=== PATIENT | female | born 1935 | race Caucasian/White ===

== ENCOUNTER → 2017-12-11 | Outpatient (CLI) | payer MEDICARE, OTHER ==
[~2017-12-11] MED LIST: ALBIPROI INH; ALBU3IS; ALBU3IS INH; ALLO100 PO; AMLO5; ASPI81CH PO; ASPI81EC PO; AZIT250 PO; BCOIRO PO; CEREFOLIN; CEREFOLIN NAC PO; CEREFOLIN PO; CHOL10002 PO; CLAR500; CONESTTC PV; CRANBERRY CAP; CRANBERRY PO; Calcium Carbon500 MG PO; DOCU100 PO; DONE10 PO; DONE5 PO; DULO60 PO; ERGO400 PO; ERGO50000 PO; FENT25TP TOP; FENT50TP TOP; FENT75TP TOP; FISH1000 PO; FLUSAL1005 IH; FLUSAL2505; FLUSAL5005 IH; FLUSAL5005 INH; GUAI600T33; HYDACE10B; HYDACE5; I-CAPS; LAVAP17G PO; LEVFLO500 PO; LIDO5TP TOP; LIDO700A20 TOP; LINZESS145 MCG PO; LORA.5 PO; LORA10 PO; Levaquin500 MG PO; MECL25 PO; METH5; MIRT15 PO; MULVIT PO; MULVITMINF PO; OMEG1CAP30 PO; OMEP20ER PO; ONDA4ODT MM; OSEL75CA PO; OXYACE5T PO; OXYB5; OXYC15ER PO; OXYC5 PO; OXYGEN INH; PAPAYA; PAPAYA ENZYME PO; PRED20 PO; PROM25 PO; RXPROCODSY PO; SENN187 PO; SERT100; SERT50; STOMUL PO; TELM20 PO; TELM40 PO; TOLT2ER; TOLT2ER PO; TOLT4; TRAM50 PO; VITAMEN; VITB100 PO; VITNEPH PO; [UNRECOGNIZED DRUG - OTHER]; [UNRECOGNIZED DRUG - OTHER] PO; [UNRECOGNIZED DRUG - OTHER] PO; [UNRECOGNIZED DRUG - REMARK]; [UNRECOGNIZED DRUG - REMARK]
[2017-12-11 02:38] LABS: Source, Urine Catheter
[2017-12-11 02:45] LABS: Bilirubin, Urine Neg (Neg); Blood, Urine 1+ (Neg); Glucose Qualitative, Urine Neg (Neg); Ketones, Urine Neg (Neg); Leukocyte Esterase, Urine 3+ (Neg); Nitrite, Urine Neg (Neg); Protein, Urine 1+ (Neg); Specific Gravity, Urine 1.015 (1.003-1.022); Urobilinogen, Urine NORM (Normal)
[2017-12-11 02:48] LABS: Appearance, Urine Clear (Clear); Color, Urine Yellow (P-Yellow)
[2017-12-11 02:53] LABS: Amorphous Light (0-Heavy); Bacteria Few /hpf; Red Blood Cells, Urine Rare /hpf (0-2); Squamous Epithelial Cells Few /hpf (Few); White Blood Cells, Urine 50-100 /hpf (0-5)
== END | disposition home or self-care (01) ==
LOC: LAB RH 02:36
DX: N39.0 Urinary tract infection, site not specified (principal)
CPT/HCPCS: 81001; 87086

== ENCOUNTER → 2018-04-08 | Outpatient (CLI) | payer MEDICARE, OTHER ==
[~2018-04-08] MED LIST changes: -ALBU3IS; -CHOL10002 PO; -Calcium Carbon500 MG PO; -LIDO700A20 TOP; -LINZESS145 MCG PO
[2018-04-08 18:00] LABS: Bilirubin, Urine Neg (Neg); Blood, Urine 1+ (Neg); Glucose Qualitative, Urine Neg (Neg); Ketones, Urine Neg (Neg); Leukocyte Esterase, Urine 2+ (Neg); Nitrite, Urine Pos (Neg); Protein, Urine Neg (Neg); Specific Gravity, Urine 1.015 (1.003-1.022); Urobilinogen, Urine NORM (Normal); pH, Urine 6.5 (5.0-8.0)
[2018-04-08 18:14] LABS: Appearance, Urine Clear (Clear); Color, Urine Yellow (P-Yellow)
[2018-04-08 18:17] LABS: Bacteria Many /hpf; Red Blood Cells, Urine Not Seen /hpf (0-2); Squamous Epithelial Cells Mod /hpf (Few)
== END | disposition home or self-care (01) ==
LOC: EDSTATUS 16:03 → LAB RH 16:45
DX: N39.0 Urinary tract infection, site not specified (principal)
CPT/HCPCS: 81001; 87077; 87086; 87186

== ENCOUNTER 2018-05-27 16:16 | Emergency (ER) | payer MEDICARE, OTHER ==
[~2018-05-27] VITALS: Ht 162.6 cm; Wt 56.7 kg
[~2018-05-27 16:16] MED LIST changes: +CHOL10002 PO
[2018-05-27] MEDS ORDERED: LINZESS145 MCG PO (16:31)
[2018-05-27] MEDS ORDERED: ALBU3IS (16:32)
[2018-05-27] MEDS ORDERED: Calcium Carbon500 MG PO (16:35)
[2018-05-27] MEDS ORDERED: FENT50TP TOP (16:36)
[2018-05-27] MEDS ORDERED: LIDO700A20 TOP (16:53)
== END 2018-05-27 18:27 | disposition home or self-care (01) ==
LOC: ER 16:16
DX: M25.511 Pain in right shoulder (principal); F03.90 Unspecified dementia, unspecified severity, without behavioral disturbance, psychotic disturbance, mood disturbance, and anxiety; I10 Essential (primary) hypertension; F32.9 Major depressive disorder, single episode, unspecified; Z88.0 Allergy status to penicillin; Z88.5 Allergy status to narcotic agent; Z91.09 Other allergy status, other than to drugs and biological substances; Z91.018 Allergy to other foods; Z79.899 Other long term (current) drug therapy; Z79.82 Long term (current) use of aspirin; Z79.51 Long term (current) use of inhaled steroids; Z87.891 Personal history of nicotine dependence
CPT/HCPCS: 73030; 99283

== ENCOUNTER → 2018-07-03 | Outpatient (CLI) | payer MEDICARE, OTHER ==
[~2018-07-03] MED LIST changes: +ALBU3IS; +Calcium Carbon500 MG PO; +LIDO700A20 TOP; +LINZESS145 MCG PO
[2018-07-03 22:42] LABS: Bilirubin, Urine Neg (Neg); Blood, Urine Neg (Neg); Glucose Qualitative, Urine Neg (Neg); Ketones, Urine Neg (Neg); Leukocyte Esterase, Urine 1+ (Neg); Nitrite, Urine Neg (Neg); Protein, Urine 2+ (Neg); Urobilinogen, Urine NORM (Normal); pH, Urine 6.5 (5.0-8.0)
[2018-07-03 22:50] LABS: Appearance, Urine Clear (Clear); Color, Urine Yellow (P-Yellow)
[2018-07-03 22:51] LABS: Bacteria Many /hpf; Mucus Heavy (0-Heavy); Squamous Epithelial Cells Few /hpf (Few)
== END | disposition home or self-care (01) ==
LOC: EDSTATUS 14:56 → LAB RH 22:36
DX: N39.0 Urinary tract infection, site not specified (principal)
CPT/HCPCS: 81001; 87086

== ENCOUNTER → 2018-12-12 | Outpatient (CLI) | payer MEDICARE, OTHER ==
[2018-12-13 02:53] LABS: Bilirubin, Urine Neg (Neg); Blood, Urine 2+ (Neg); Glucose Qualitative, Urine Neg (Neg); Ketones, Urine 1+ (Neg); Leukocyte Esterase, Urine 3+ (Neg); Nitrite, Urine Neg (Neg); Protein, Urine 2+ (Neg); Urobilinogen, Urine NORM (Normal)
[2018-12-13 03:21] LABS: Appearance, Urine Cloudy (Clear); Color, Urine Yellow (P-Yellow)
[2018-12-13 03:25] LABS: Bacteria Many /hpf; Red Blood Cells, Urine 0-2 /hpf (0-2); Squamous Epithelial Cells Few /hpf (Few); White Blood Cells, Urine 50-100 /hpf (0-5)
== END | disposition home or self-care (01) ==
LOC: EDSTATUS 10:39 → LAB RH 22:00
DX: N39.46 Mixed incontinence (principal)
CPT/HCPCS: 81001; 87086

== ENCOUNTER → 2019-01-01 | Outpatient (CLI) | payer MEDICARE, OTHER ==
[2019-01-01 14:09] LABS: Source, Urine Catheter
[2019-01-01 14:44] LABS: Appearance, Urine Hazy (Clear); Bilirubin, Urine Neg (Neg); Blood, Urine 1+ (Neg); Color, Urine Yellow (P-Yellow); Glucose Qualitative, Urine Neg (Neg); Ketones, Urine 1+ (Neg); Leukocyte Esterase, Urine 1+ (Neg); Nitrite, Urine Neg (Neg); Protein, Urine 1+ (Neg); Specific Gravity, Urine 1.025 (1.003-1.022); Urobilinogen, Urine 1+ (Normal)
[2019-01-01 15:02] LABS: Bacteria Few /hpf; Squamous Epithelial Cells Many /hpf (Few)
== END | disposition home or self-care (01) ==
LOC: EDSTATUS 11:24 → LAB RH 14:08
DX: N39.0 Urinary tract infection, site not specified (principal)
CPT/HCPCS: 81001; 87086

== ENCOUNTER → 2020-02-10 | Outpatient (CLI) | payer MEDICARE, OTHER ==
[~2020-02-10] MED LIST changes: +ACET325 PO; +ALBU90OI INH; +ASPIR 8181 MG PO; +Artificial Tea1 EACH BOTHEYES; +BISA10S PR; +BISA5EC PO; +Ceftriaxone1 G2 IV; +DONEPEZIL HCL10 MG PO; +FLUT1DIS8 INH; +Fleet Enema132 ML PR; +GAVILAX17 GM PO; +GUAI600T33 PO; +LEVO750 PO; +MAGNESIUM CITR100 MG; +MILK OF MA400 MG/5 M PO; +PROM25S PR; +THERA1 EACH PO; +Transderm-Scop1 EACH TD; +Vitamin D2000 UNIT PO; +[UNRECOGNIZED DRUG - OTHER] IV
[2020-02-10 12:10] LABS: Hematocrit 43.5 % (33.0-51.0); Hemoglobin 13.3 g/dL (11.5-16.0); Mean Corpuscular HGB 29.8 pg (26.0-34.0); Mean Corpuscular HGB Conc 30.6 g/dL (31.5-36.5); Mean Corpuscular Volume 97 fL (80-100); Mean Platelet Volume 12.5 fL (9.1-12.4); NRBC ABSOLUTE 0.02 K/mm3 (0.00-0.02); NRBC Auto 0.1 /100 WBC (0.0-0.2); Platelet Count 266 K/mm3 (150-400); RDW Coefficient Variation 15.3 % (11.7-14.2); RDW Standard Deviation 55.2 fL (35.1-46.3); Red Blood Cell Count 4.47 M/mm3 (3.80-5.20); White Blood Cell Count 24.95 K/mm3 (4.00-11.30)
[2020-02-10 12:25] LABS: Albumin, Blood 2.7 g/dL (3.4-5.0); Albumin/Globulin Ratio 0.6 (0.8-1.8); Bilirubin, Total 0.9 mg/dL (0.1-1.0); Bun/Creatinine Ratio 44.4 (12.0-20.0); Calcium, Blood 9.4 mg/dL (8.5-10.1); Creatinine, Blood 1.26 mg/dL (0.40-1.00); Globulin, Blood 4.4 g/dL (2.2-4.0); Potassium, Blood 3.9 mmol/L (3.5-5.5); Total Protein, Blood 7.1 g/dL (6.4-8.2)
[2020-02-10 12:44] LABS: Appearance, Urine Hazy (Clear); Bilirubin, Urine Neg (Neg); Blood, Urine 1+ (Neg); Color, Urine Yellow (P-Yellow); Glucose Qualitative, Urine Neg (Neg); Ketones, Urine 1+ (Neg); Leukocyte Esterase, Urine 3+ (Neg); Nitrite, Urine Neg (Neg); Protein, Urine 3+ (Neg); Specific Gravity, Urine 1.015 (1.003-1.022); Urobilinogen, Urine 1+ (Normal)
[2020-02-10 13:02] LABS: Bacteria Many /hpf; Red Blood Cells, Urine 0-2 /hpf (0-2); Squamous Epithelial Cells Few /hpf (Few)
== END | disposition home or self-care (01) ==
LOC: EDSTATUS 11:06 → LAB RH 11:07
PROVIDERS: Family Medicine
DX: G20 Parkinson's disease (principal); J44.1 Chronic obstructive pulmonary disease with (acute) exacerbation; E56.9 Vitamin deficiency, unspecified; E56.8 Deficiency of other vitamins; N39.0 Urinary tract infection, site not specified
CPT/HCPCS: 80053; 81001; 85027; 87077; 87086; 87186

== ENCOUNTER 2020-02-12 19:01 | Inpatient (IN) | payer MEDICARE, OTHER ==
[~2020-02-12] VITALS: Ht 165.1 cm; Wt 57.8 kg
[~2020-02-12 19:01] MED LIST changes: -ACET325 PO; -ALBU90OI INH; -ASPIR 8181 MG PO; -Artificial Tea1 EACH BOTHEYES; -BISA10S PR; -BISA5EC PO; -Ceftriaxone1 G2 IV; -DONEPEZIL HCL10 MG PO; -FLUT1DIS8 INH; -Fleet Enema132 ML PR; -GAVILAX17 GM PO; -GUAI600T33 PO; -MAGNESIUM CITR100 MG; -MILK OF MA400 MG/5 M PO; -PROM25S PR; -THERA1 EACH PO; -Transderm-Scop1 EACH TD; -Vitamin D2000 UNIT PO; -[UNRECOGNIZED DRUG - OTHER] IV
[2020-02-12] MEDS ORDERED: DONEPEZIL HCL10 MG PO (19:20)
[2020-02-12] MEDS ORDERED: ALLO100 PO (19:20)
[2020-02-12] MEDS ORDERED: FLUT1DIS8 INH (19:20)
[2020-02-12] MEDS ORDERED: BISA5EC PO (19:21)
[2020-02-12] MEDS ORDERED: ASPIR 8181 MG PO (19:21)
[2020-02-12] MEDS ORDERED: Ceftriaxone1 G2 IV (19:21)
[2020-02-12] MEDS ORDERED: THERA1 EACH PO (19:22)
[2020-02-12] MEDS ORDERED: [UNRECOGNIZED DRUG - OTHER] IV (19:23)
[2020-02-12] MEDS ORDERED: DOCU100 PO (19:24)
[2020-02-12 19:25] LABS: PCO2 Arterial 53.8 mmHg (35-45); PO2 Arterial 77.4 mmHg (80-100); pH Blood Arterial 7.29 (7.35-7.45)
[2020-02-12] MEDS ORDERED: DULO60 PO (19:25)
[2020-02-12] MEDS ORDERED: FENT50TP TOP (19:25)
[2020-02-12] MEDS ORDERED: BISA10S PR (19:25)
[2020-02-12] MEDS ORDERED: GUAI600T33 PO (19:26)
[2020-02-12] MEDS ORDERED: Artificial Tea1 EACH BOTHEYES (19:27)
[2020-02-12 19:28] LABS: BASOPHILS ABSOLUTE AUTO 0.15 K/mm3 (0.00-0.23); BASOPHILS PERCENT AUTO 1 % (0-2); EOSINOPHILS PERCENT AUTO 0 % (0-6); Hematocrit 42.8 % (33.0-51.0); Hemoglobin 12.9 g/dL (11.5-16.0); IMMATURE GRAN ABSOLUTE AUTO 0.62 K/mm3 (0.00-0.10); IMMATURE GRAN PERCENT AUTO 3 % (0-1); LYMPHOCYTES ABSOLUTE AUTO 1.11 K/mm3 (0.84-5.20); LYMPHOCYTES PERCENT AUTO 5 % (21-46); MONOCYTES PERCENT AUTO 5 % (4-13); Mean Corpuscular HGB 30.2 pg (26.0-34.0); Mean Corpuscular HGB Conc 30.1 g/dL (31.5-36.5); Mean Corpuscular Volume 100 fL (80-100); Mean Platelet Volume 12.4 fL (9.1-12.4); NEUTROPHILS PERCENT AUTO 87 % (41-73); NRBC ABSOLUTE 0.05 K/mm3 (0.00-0.02); NRBC Auto 0.2 /100 WBC (0.0-0.2); Platelet Count 292 K/mm3 (150-400); RDW Coefficient Variation 15.7 % (11.7-14.2); Red Blood Cell Count 4.27 M/mm3 (3.80-5.20); White Blood Cell Count 22.68 K/mm3 (4.00-11.30)
[2020-02-12] MEDS ORDERED: MILK OF MA400 MG/5 M PO (19:28)
[2020-02-12] MEDS ORDERED: TELM40 PO (19:28)
[2020-02-12] MEDS ORDERED: GAVILAX17 GM PO (19:28)
[2020-02-12] MEDS ORDERED: Vitamin D2000 UNIT PO (19:29)
[2020-02-12] MEDS ORDERED: SENN187 PO (19:29)
[2020-02-12] MEDS ORDERED: ACET325 PO (19:29)
[2020-02-12 19:39] LABS: Albumin, Blood 2.2 g/dL (3.4-5.0); Albumin/Globulin Ratio 0.6 (0.8-1.8); Bilirubin, Total 0.3 mg/dL (0.1-1.0); Bun/Creatinine Ratio 37.3 (12.0-20.0); Calcium, Blood 9.4 mg/dL (8.5-10.1); Creatinine, Blood 1.34 mg/dL (0.40-1.00); Potassium, Blood 3.9 mmol/L (3.5-5.5); Total Protein, Blood 6.2 g/dL (6.4-8.2)
[2020-02-12 20:01] LABS: Source, Urine Clean Catch
[2020-02-12 20:05] LABS: Appearance, Urine Hazy (Clear); Bilirubin, Urine Neg (Neg); Blood, Urine Neg (Neg); Color, Urine Yellow (P-Yellow); Glucose Qualitative, Urine Neg (Neg); Ketones, Urine 1+ (Neg); Leukocyte Esterase, Urine 1+ (Neg); Nitrite, Urine Neg (Neg); Protein, Urine 3+ (Neg); Urobilinogen, Urine NORM (Normal)
[2020-02-12 20:14] LABS: Bacteria Mod /hpf; Red Blood Cells, Urine Not Seen /hpf (0-2); Squamous Epithelial Cells Few /hpf (Few)
[2020-02-12 20:15] LABS: Amorphous Light (0-Heavy)
--- NOTE | 2020-02-13 01:15 | NUR ---
PT RECEIVED FROM ER VIA STRETCHER, TRANSFERRED TO BED WITHOUT INCIDENT. PT IS CONFUSED, UNABLE TO ANSWER ADMISSION QUESTIONS.
--- NOTE | 2020-02-13 02:17 | NUR ---
UPDATE VERIFIED WITH DR COOK THAT THE LANTUS AND D5 ARE TO BE GIVEN. DR COOK STATED TO GO AHEAD AND ADMINISTER BOTH MEDICATIONS.
[2020-02-13 04:21] LABS: Hematocrit 39.4 % (33.0-51.0); Hemoglobin 11.9 g/dL (11.5-16.0); Mean Corpuscular HGB 29.7 pg (26.0-34.0); Mean Corpuscular HGB Conc 30.2 g/dL (31.5-36.5); Mean Corpuscular Volume 98 fL (80-100); Mean Platelet Volume 12.5 fL (9.1-12.4); NRBC ABSOLUTE 0.03 K/mm3 (0.00-0.02); NRBC Auto 0.1 /100 WBC (0.0-0.2); Platelet Count 254 K/mm3 (150-400); RDW Coefficient Variation 15.5 % (11.7-14.2); RDW Standard Deviation 56.9 fL (35.1-46.3); Red Blood Cell Count 4.01 M/mm3 (3.80-5.20); White Blood Cell Count 24.55 K/mm3 (4.00-11.30)
[2020-02-13 04:54] LABS: Albumin/Globulin Ratio 0.6 (0.8-1.8); Bilirubin, Total 0.3 mg/dL (0.1-1.0); Bun/Creatinine Ratio 34.5 (12.0-20.0); Calcium, Blood 9.3 mg/dL (8.5-10.1); Creatinine, Blood 1.65 mg/dL (0.40-1.00); Globulin, Blood 3.6 g/dL (2.2-4.0); Total Protein, Blood 5.6 g/dL (6.4-8.2)
--- NOTE | 2020-02-13 06:30 | NUR ---
VSS, PT IS SENSITIVE TO TOUCH. CONFUSED, PLEASANT. PT LUNG SOUNDS ARE COARSE THROUGHOUT, STABLE OXYGEN SATURATION ON 8L VIA OXYMIZER. NO C/O N/V. SKIN INTACT. PT IS VERY WEAK, COULD NOT STAND WITH 2 PERSON ASSIST TO BSC. PT IS INCONTINENT OF URINE. PT UNABLE TO ANSWER ADMISSION QUESTIONS. IV INFUSING WELL, NO REDNESS, SWELLING OR TENDERNESS NOTED. BED IN LOW POSITION, CALL CASTANEDA WITH REACH, BED ALARM ON.
[2020-02-13] MEDS ORDERED: Fleet Enema132 ML PR (06:40)
[2020-02-13] MEDS ORDERED: MAGNESIUM CITR100 MG (06:42)
[2020-02-13] MEDS ORDERED: ALBU90OI INH (06:42)
[2020-02-13 07:08] LABS: PCO2 Arterial 44.9 mmHg (35-45); PO2 Arterial 56.5 mmHg (80-100); pH Blood Arterial 7.35 (7.35-7.45)
--- NOTE | 2020-02-13 07:32 | NUR ---
ASSUMED CARE: PT RESTING QUIETLY AT THIS TIME. RT AND TRAINING TECHNICIAN AT BEDSIDE UPON ASSUMPTION OF CARE. NO ACUTE NEEDS OR CONCERNS.
--- NOTE | 2020-02-13 10:32 | NUR ---
DR GUTIÉRREZ CAME TO SEE PT. STATED PT COULD EAT WITH SUPERVISION AFTER REVIEWING RECORDS FROM [facility]. ADMINISTERED MEDS WITH APPLE SAUCE AND SIPS OF WATER WHICH PT TOLERATED WELL WITH NO DIFFICULTY SWALLOWING.
--- NOTE | 2020-02-13 14:06 | NUR ---
DR CAMPBELL MADE AWARE OF FAILED SWALLOW EVAL. ORDERS FOR CONTINUOUS FLUIDS UNTIL SPEECH CAN REEVAL TOMORROW.
--- NOTE | 2020-02-13 17:54 | NUR ---
SHIFT SUMMARY: PT RESTING QUIETLY IN BED. REMAINS VERY CONFUSED AND [place] BUT PLEASANT. 8L O2 VIA NC WITH SAT IN LOW 90S. UPDATED SON THIS AM. FAILED SPEECH EVAL. SPEECH TO REEVAL TOMORROW. NO FURTHER NEEDS OR CONCERNS AT THIS TIME.
--- NOTE | 2020-02-14 07:25 | NUR ---
SHIFT SUMMARY PATIENT CONFUSED AND FORGETFUL THROUGHOUT THE NIGHT. PATIENT VERY DIFFICULT TO REORIENT. PATIENT CHANGES IDEAS AND THOUGHOUTS SEVERAL TIMES DURING A SENTENCE. PATIENT APPEARED TO SLEEP WELL THROUGHOUT MOST OF THE NIGHT, HOWEVER, AT APPROX 0400 PATIENT BEGAN TO BECOME VERY AGITATED AND UNSETTLED. PATIENT STATED TO STAFF THAT SHE HURT, "ALL OVER." DR COOK NOTIFIED OF PATIENT'S HOME PAIN MEDICATIONS. ORDERS RECEIVED. PATIENT THEN APPEARED TO NAP ON AND OFF THROUGHOUT THE REST OF THE NIGHT. WHILE PATIENT WAS AGITATED SHE REMOVED HER OXYGEN SEVERAL TIMES, REPLACED EACH TIME. PATIENT CHECKED ON FREQUENTLY DURING HER AGITATION THIS MORNING. PATIENT APPEARS TO BE ABLE TO TURN SELF IN BED ON HER OWN. REPORT GIVEN TO ONCOMING RN.
[2020-02-14 08:44] LABS: BASOPHILS ABSOLUTE AUTO 0.05 K/mm3 (0.00-0.23); BASOPHILS PERCENT AUTO 0 % (0-2); EOSINOPHILS PERCENT AUTO 0 % (0-6); Hematocrit 37.4 % (33.0-51.0); Hemoglobin 11.6 g/dL (11.5-16.0); IMMATURE GRAN PERCENT AUTO 2 % (0-1); LYMPHOCYTES ABSOLUTE AUTO 1.13 K/mm3 (0.84-5.20); LYMPHOCYTES PERCENT AUTO 4 % (21-46); MONOCYTES ABSOLUTE AUTO 0.36 K/mm3 (0.16-1.47); MONOCYTES PERCENT AUTO 1 % (4-13); Mean Corpuscular HGB 29.4 pg (26.0-34.0); Mean Platelet Volume 12.1 fL (9.1-12.4); NEUTROPHILS ABSOLUTE AUTO 24.11 K/mm3 (1.96-9.15); NEUTROPHILS PERCENT AUTO 92 % (41-73); NRBC ABSOLUTE 0.04 K/mm3 (0.00-0.02); NRBC Auto 0.2 /100 WBC (0.0-0.2); Platelet Count 302 K/mm3 (150-400); RDW Coefficient Variation 15.5 % (11.7-14.2); RDW Standard Deviation 53.2 fL (35.1-46.3); Red Blood Cell Count 3.95 M/mm3 (3.80-5.20); White Blood Cell Count 26.25 K/mm3 (4.00-11.30)
[2020-02-14 08:49] LABS: Mean Corpuscular Volume 95 fL (80-100)
[2020-02-14 09:00] LABS: Bun/Creatinine Ratio 44.8 (12.0-20.0); Calcium, Blood 9.4 mg/dL (8.5-10.1); Creatinine, Blood 1.43 mg/dL (0.40-1.00); Magnesium, Blood 2.5 mg/dL (1.6-2.4); Potassium, Blood 4.1 mmol/L (3.5-5.5)
--- NOTE | 2020-02-14 09:54 | NUR ---
NOTE PT SON CALLED TO CHECK ON MOM. TALKED FOR AWHILE. HE RELATES THAT CIPRO WORKS BETTER ON MOM THAN LEVAGUIN. PT CURRENTLY NPO PER SPEACH THERAPY DIRECTION. UNABLE TO GIVEN ORAL MEDICATIONS AT THIS TIME. DR CAMPBELL INFORMED. VSS. FENTANYL PATCH ON RIGHT FRONT CHEST. CONTINUE POT.
--- NOTE | 2020-02-14 10:41 | NUR ---
NOTE DR CAMPBELL ROUNDED ON PT. NO NEW ORDERS. CONTINUE POT.
--- NOTE | 2020-02-14 14:14 | NUR ---
NOTE PT RESTING WITH EYES CLOSED. ST. LOW 100'S. VSS. PT LIKES TO LAY ON HER LEFT SIDE. SHE PREFERS TO NOT HAVE PILLOWS BEHIND HER. NPO D/T ASPIRATION CONCERNS. ORAL CARE DONE WITH SET UP BY PT. 8L OXIMYZER. SAT STABLE AT THIS TIME. NO COUGH. CONTINUE POT.
[2020-02-15 05:46] LABS: BASOPHILS ABSOLUTE AUTO 0.04 K/mm3 (0.00-0.23); BASOPHILS PERCENT AUTO 0 % (0-2); EOSINOPHILS PERCENT AUTO 0 % (0-6); Hematocrit 35.7 % (33.0-51.0); Hemoglobin 11.1 g/dL (11.5-16.0); IMMATURE GRAN ABSOLUTE AUTO 0.56 K/mm3 (0.00-0.10); IMMATURE GRAN PERCENT AUTO 2 % (0-1); LYMPHOCYTES ABSOLUTE AUTO 0.99 K/mm3 (0.84-5.20); LYMPHOCYTES PERCENT AUTO 4 % (21-46); MONOCYTES ABSOLUTE AUTO 0.37 K/mm3 (0.16-1.47); MONOCYTES PERCENT AUTO 1 % (4-13); Mean Corpuscular HGB 28.8 pg (26.0-34.0); Mean Corpuscular HGB Conc 31.1 g/dL (31.5-36.5); Mean Corpuscular Volume 93 fL (80-100); Mean Platelet Volume 12.1 fL (9.1-12.4); NEUTROPHILS ABSOLUTE AUTO 24.19 K/mm3 (1.96-9.15); NEUTROPHILS PERCENT AUTO 93 % (41-73); NRBC ABSOLUTE 0.04 K/mm3 (0.00-0.02); NRBC Auto 0.2 /100 WBC (0.0-0.2); Platelet Count 311 K/mm3 (150-400); RDW Coefficient Variation 15.2 % (11.7-14.2); RDW Standard Deviation 52.3 fL (35.1-46.3); Red Blood Cell Count 3.85 M/mm3 (3.80-5.20); White Blood Cell Count 26.15 K/mm3 (4.00-11.30)
[2020-02-15 05:53] LABS: Calcium, Blood 9.1 mg/dL (8.5-10.1); Creatinine, Blood 1.22 mg/dL (0.40-1.00); Magnesium, Blood 2.5 mg/dL (1.6-2.4); Potassium, Blood 3.8 mmol/L (3.5-5.5)
--- NOTE | 2020-02-15 06:28 | NUR ---
SHIFT SUMMARY PATIENT PLEASENT BUT CONTINUES TO BE CONFUSED. PATIENT'S CONTINUES TO BE DIFFICULT TO HOLD A CONVERASTION WITH PATIENT'S THOUGHTS CHANGE IN THE MIDDLE OF HER SENTENCES. PATIENT CONTINUES TO BE DIFFICULT TO REORIENT. PATIENT APPEARS TO MOVE HERSELF ABOUT IN BED. IV FLUIDS CONTINUE TO RUN PER ORDERS. WILL CONTINUE TO MONITOR PATIENT AND REPORT TO ONCOMING RN.
--- NOTE | 2020-02-15 12:54 | NUR ---
I can her patient yelling "help me, help me" from the hallway quite a distance from her room. I walk into patient's room and introduce myself and the department I represent. Patient struggles to hear (which account for her yellig?) and so conversation is somewhat strained. I asked patient what she needs help with and she states that she doesn't know. Patient attempts to get out of bed and I ask patient where she is going and she tells me that she doesn't know but she "can't keep lying here." Patient tells me that she is very sick and I remind her that lying still and resting is part of what will help her feel better. Patient did not understand my questions about God or adventism but when I asked her if I could say a prayer for her she says, "well of course!" I gladly provide prayer. I also listen empathically, normalize patient's experience and provide companionship (which gives staff a few minutes without having to listen to patient's yelling). Patient responds well to the prayer and says that she feels better because of the prayer. I will continue to remain available to patient and family.
--- NOTE | 2020-02-15 18:35 | NUR ---
NOTE PT ALERT AND CONFUSED. YELLS OUT FREQUENTLY BUT DOESN'T KNOW WHAT SHE WANTS HELP WITH. NIKOLSKI. TALKED WITH PT SON RANDY. THEY DO NOT WANT HER TO HAVE ARTIFICIAL NUTRITION APARTMENT COORDINATOR. CLINIMAX IS FINE FOR THE SHORT TERM. NO FEEDING TUBES. PT OUT OF COVID ISOLATION. DOORS OPEN. CONTINUE POT.
[2020-02-16 04:31] LABS: BASOPHILS ABSOLUTE AUTO 0.04 K/mm3 (0.00-0.23); BASOPHILS PERCENT AUTO 0 % (0-2); EOSINOPHILS PERCENT AUTO 0 % (0-6); Hemoglobin 11.7 g/dL (11.5-16.0); IMMATURE GRAN PERCENT AUTO 1 % (0-1); LYMPHOCYTES ABSOLUTE AUTO 0.57 K/mm3 (0.84-5.20); LYMPHOCYTES PERCENT AUTO 3 % (21-46); MONOCYTES ABSOLUTE AUTO 0.37 K/mm3 (0.16-1.47); MONOCYTES PERCENT AUTO 2 % (4-13); Mean Corpuscular HGB 29.8 pg (26.0-34.0); Mean Corpuscular HGB Conc 32.5 g/dL (31.5-36.5); Mean Corpuscular Volume 92 fL (80-100); Mean Platelet Volume 11.3 fL (9.1-12.4); NEUTROPHILS PERCENT AUTO 94 % (41-73); NRBC ABSOLUTE 0.02 K/mm3 (0.00-0.02); NRBC Auto 0.1 /100 WBC (0.0-0.2); Platelet Count 304 K/mm3 (150-400); RDW Standard Deviation 50.8 fL (35.1-46.3); Red Blood Cell Count 3.93 M/mm3 (3.80-5.20); White Blood Cell Count 21.38 K/mm3 (4.00-11.30)
[2020-02-16 04:47] LABS: Bun/Creatinine Ratio 53.4 (12.0-20.0); Calcium, Blood 8.9 mg/dL (8.5-10.1); Creatinine, Blood 0.99 mg/dL (0.40-1.00); Magnesium, Blood 2.4 mg/dL (1.6-2.4); Phosphorus, Blood 3.4 mg/dL (2.5-4.9); Potassium, Blood 3.7 mmol/L (3.5-5.5)
--- NOTE | 2020-02-16 05:34 | NUR ---
SHIFT SUMMARY: PATIENT HAD SEVERAL EPISODES DURING THE SHIFT OF O2 SATURATION DROPPING INTO THE HIGH 70'S AND LOW 80'S WITH INCREASED BP AND ANXIOUS BEHAVIOR. AT APPROX 0320 PATIENT HAD ANOTHER EPISODE WITH 02 DROPPING TO 72% ON 10L OXIMIZER, O2 TURNED UP TO 15L WITH NO IMPROVEMENT, RT CALLED, MD COOK NOTIIED WITH ORDERS RECIEVED. PATIENT PLACED ON AIRVO AT 85% FI02 AND PATIENTS 02 SATURATION REACHED 93% AND REMAINED. PATIENTS BLOOD PRESSURES IMPROVED AND PATIENT ABLE TO FALL ASLEEP. NO OTHER ISSUES NOTED. CALL LIGHT WITHIN REACH, LIGHTS DIMMED, MUSIC STATION ON AND PLAYING SOFT MUSIC, PATIENT MOVED TO ROOM PCU 11 FOR CLOSER OBSERVATION.
--- NOTE | 2020-02-16 05:47 | NUR ---
WRIST RESTRAINTS PLACED AT APPROX 0355 PATIENT WOULD NOT LEAVE O2 ON FACE AND WAS PULLING AT MIDLINE AND HEART MONITOR, PATIENT IS CONFUSED AND RESTLESS, MONITORING CLOSELY AND MD AWARE WITH ORDER RECIEVED.
--- NOTE | 2020-02-16 18:14 | NUR ---
PCU DAYSHIFT SUMMARY PATIENT ALERT AND ORIENTED TO SELF AND LOCATION. CONFUSED TO SITUATION AND TIME/DATE. PATIENT DENIES ANY PAIN T/O SHIFT. RESP E/U AT REST ON AIRVO. PATIENT IN NSR WITH HR IN THE 90'S. RESTRAINTS D/C'D THIS AM AND PATIENT PLEASANT AND COOPERATIVE WITH CARE T/O SHIFT. NO ACUTE CHANGES. CALL LIGHT W/I REACH AND BED ALARM ON. Q2 TURNS AND ATTENDS CHANGE. NO BOWL MOVEMENT NOTED THIS SHIFT. WILL CONTINUE TO MONITOR AND REPORT TO NOC SHIFT RN.
--- NOTE | 2020-02-16 22:15 | NUR ---
Assumed Care Pt presents with VSS; breathing even and unlabored on airvo 60LPM 70%fio2 with spo2 at 97%. RT at bedside for oxygen titration. Pt with short, shallow breaths, but denies feeling short of breath at this time. Pt alert, mild confusion noted which is consistant with this hospital stay. Pt calling out yelling "nurse!" and "help!" instead of using call light to make needs known. Pt has puree diet orders from [facility] [place] thick liquids with spoon only. Pt tolerating diet without coughing or clinical s/sx aspiration. Pills given whole with applesauce, slow, one at a time. Clinimix infusing to ROE powerglide. ABX infused per orders. One hard, small BM this shift. Incont. See shift assessment for detailed assessment.
--- NOTE | 2020-02-17 00:45 | NUR ---
Pt airvo titrated to 60 LPM; 50% Fio2 and spo2 97%.
[2020-02-17 04:29] LABS: BASOPHILS ABSOLUTE AUTO 0.03 K/mm3 (0.00-0.23); BASOPHILS PERCENT AUTO 0 % (0-2); EOSINOPHILS ABSOLUTE AUTO 0.01 K/mm3 (0.00-0.68); EOSINOPHILS PERCENT AUTO 0 % (0-6); Hematocrit 35.3 % (33.0-51.0); Hemoglobin 11.4 g/dL (11.5-16.0); IMMATURE GRAN PERCENT AUTO 2 % (0-1); LYMPHOCYTES ABSOLUTE AUTO 1.11 K/mm3 (0.84-5.20); LYMPHOCYTES PERCENT AUTO 5 % (21-46); MONOCYTES ABSOLUTE AUTO 0.94 K/mm3 (0.16-1.47); MONOCYTES PERCENT AUTO 5 % (4-13); Mean Corpuscular HGB 29.8 pg (26.0-34.0); Mean Corpuscular HGB Conc 32.3 g/dL (31.5-36.5); Mean Corpuscular Volume 92 fL (80-100); Mean Platelet Volume 11.5 fL (9.1-12.4); NEUTROPHILS ABSOLUTE AUTO 18.07 K/mm3 (1.96-9.15); NEUTROPHILS PERCENT AUTO 88 % (41-73); Platelet Count 295 K/mm3 (150-400); RDW Standard Deviation 50.8 fL (35.1-46.3); Red Blood Cell Count 3.83 M/mm3 (3.80-5.20); White Blood Cell Count 20.46 K/mm3 (4.00-11.30)
[2020-02-17 04:47] LABS: Anion Gap 4 mmol/L (6-16); Blood Urea Nitrogen 59 mg/dL (8-24); Bun/Creatinine Ratio 66.4 (12.0-20.0); CO2, Blood 29 mmol/L (21-32); Calcium, Blood 8.7 mg/dL (8.5-10.1); Chloride, Blood 110 mmol/L (98-108); Creatinine, Blood 0.89 mg/dL (0.40-1.00); Glomerular Filtration Rate >60 (60-); Glucose, Blood 146 mg/dL (70-99); Magnesium, Blood 2.5 mg/dL (1.6-2.4); Potassium, Blood 4.1 mmol/L (3.5-5.5); Sodium, Blood 143 mmol/L (136-145)
--- NOTE | 2020-02-17 05:16 | NUR ---
Shift Summary Pt remains on Airvo with settings 60LPM 50%FIo2 with spo2 at 90%. Breathing even and unlabored, denies SOB. Cough at times this shift, moist and non productive, occasional. Skin is fragile, bruising to BLE. Pt has sundowners, has been confused at times and calling out. Pt more oriented at start of shift and is becoming more oriented at this time. Appears that pt is most confused/disoriented/yelling out during middle of night. No acute concerns since previous note. No events on tele. Pt is incont of bowel and bladder and requires attends changes frequently. Pt also complaints of "I can't get comfortable" and requires assistance with repositions for comfort frequently. Will continue to monitor until day RN assumes care
--- NOTE | 2020-02-17 07:30 | NUR ---
ASSUMED CARE OF PATIENT. ASSISTED TO REPOSITION IN BED. SOB WITH ACTIVITY. REPORTS ANXIETY. DENIES AND PAIN. CONTINOUS PULSE OX IN PLACE. BED ALARM ON. CALL LIGHT AT BEDSIDE.
--- NOTE | 2020-02-17 18:41 | NUR ---
END SHIFT SUMMARY PATIENT APPEARS TO BE RESTING COMFORTABLE AT THIS TIME. CONTINOUS BOIX AT 96%. AIRVO SETTINGS AT 60LO2, FIO2 67%. PT TITRATED FIO2 FROM 50-67% T/O SHIFT. WHEN RESTING SPO2 STABLE ON 5LNC, HOWEVER DESTS QUICKLY TO LOW 80'S WITH ADGETATION. PT CALLING OUT, NOT USING CALL LIGHT. BED ALARM IN PLACE. WHEN ADGETATED REPEATEDLY CALLING OUT FOR ASWSISTANCE OUT OF BAD. REFUSED MOST PO TODAY. LITTLE BITS OF THICKENED WATER ONLY PO INTAKE. CONTINUES WITH CLINIMIX INFUSION AT 70ML/HR T/O SHIFT. FINISHED FAT EMULSION AT THIS TIME. PATEINT DENIES PAIN T/O DAY. INCONTENT OF URINE. NO ACUTE CHANGES T/O SHIFT. WILL REPORT OFF TO ONCOMING SHIFT AT APPROPRIATE TIME.
[2020-02-18 06:01] LABS: BASOPHILS ABSOLUTE AUTO 0.02 K/mm3 (0.00-0.23); BASOPHILS PERCENT AUTO 0 % (0-2); EOSINOPHILS ABSOLUTE AUTO 0.03 K/mm3 (0.00-0.68); EOSINOPHILS PERCENT AUTO 0 % (0-6); Hematocrit 34.6 % (33.0-51.0); Hemoglobin 11.3 g/dL (11.5-16.0); IMMATURE GRAN ABSOLUTE AUTO 0.31 K/mm3 (0.00-0.10); IMMATURE GRAN PERCENT AUTO 2 % (0-1); LYMPHOCYTES ABSOLUTE AUTO 1.32 K/mm3 (0.84-5.20); LYMPHOCYTES PERCENT AUTO 8 % (21-46); MONOCYTES ABSOLUTE AUTO 0.64 K/mm3 (0.16-1.47); MONOCYTES PERCENT AUTO 4 % (4-13); Mean Corpuscular HGB 29.3 pg (26.0-34.0); Mean Corpuscular HGB Conc 32.7 g/dL (31.5-36.5); Mean Corpuscular Volume 90 fL (80-100); Mean Platelet Volume 11.4 fL (9.1-12.4); NEUTROPHILS ABSOLUTE AUTO 15.27 K/mm3 (1.96-9.15); NEUTROPHILS PERCENT AUTO 87 % (41-73); Platelet Count 265 K/mm3 (150-400); Red Blood Cell Count 3.86 M/mm3 (3.80-5.20); White Blood Cell Count 17.59 K/mm3 (4.00-11.30)
--- NOTE | 2020-02-18 08:35 | NUR ---
AM NOTE... ASSUMED CARE OF PT APROX 0700. PT IS A&Ox4 AND ON BEDREST. PT ON ARIVO AT 60% AND 50FIO2. PT IS ANXIOUS AND DESATS QUICKLY WITH ACTIVITY AND/OR AGITATION. PT KEEPT SAYING "I HAVE TO GO, I NEED TO GET OUT OF HERE NOW!" PT'S RR 20'S EVEN BUT LABORED W/ACCESSORY MUSCLE USE. VS STABLE AT THIS TIME. PT IS C/O OF BACK PAIN ALONG WITH "PAIN ALL OVER." PROVIDER IS AWARE. PALLIATIVE CARE PLACED PER PROVIDER'S ORDER. PT IS ON PUREE DIET BUT ONLY TAKING A FEW BITES FOR BREAKFAST. CALL LIGHT IN REACH WILL CONTINUE TO MONITOR.
--- NOTE | 2020-02-18 13:05 | NUR ---
Review of prn meds with nursing for aggitaion and airhunger. Review of pt labs and intervention. pt has old polst on firle for full code. son aggred to make pt DNR will get updated polst. pt resting high oxygen use reveiwed pt wtih RT. Will review with physician and see how she is trending and make plan of care.
--- NOTE | 2020-02-18 18:21 | NUR ---
SHIFT SUMMARY... NO ACUTE NEGATIVE CHANGES NOTED THIS SHIFT. PT IS MORE RELAXED THAN SHE WAS DURING THE FIRST PART OF THIS SHIFT. PT'S WORK OF BREATHING HAS IMPROVED WELL. PT'S STATS DID NOT DROP DURING LAST REPOSITION AND MAINTAINED ABOVE 89%. PT IS STILL ON 60L AT 66% FIO2. OTHER VS HAVE BEEN STABLE T/O SHIFT. CALL LIGHT IN REACH WILL CONTINUE TO MONITOR UNTIL REPORT IS GIVEN TO ONCOMING RN
[2020-02-19 05:02] LABS: BASOPHILS ABSOLUTE AUTO 0.05 K/mm3 (0.00-0.23); BASOPHILS PERCENT AUTO 0 % (0-2); EOSINOPHILS ABSOLUTE AUTO 0.05 K/mm3 (0.00-0.68); EOSINOPHILS PERCENT AUTO 0 % (0-6); Hematocrit 33.7 % (33.0-51.0); Hemoglobin 11.2 g/dL (11.5-16.0); IMMATURE GRAN ABSOLUTE AUTO 0.53 K/mm3 (0.00-0.10); IMMATURE GRAN PERCENT AUTO 3 % (0-1); LYMPHOCYTES ABSOLUTE AUTO 1.27 K/mm3 (0.84-5.20); LYMPHOCYTES PERCENT AUTO 7 % (21-46); MONOCYTES ABSOLUTE AUTO 0.59 K/mm3 (0.16-1.47); MONOCYTES PERCENT AUTO 3 % (4-13); Mean Corpuscular HGB 29.6 pg (26.0-34.0); Mean Corpuscular HGB Conc 33.2 g/dL (31.5-36.5); Mean Corpuscular Volume 89 fL (80-100); Mean Platelet Volume 11.6 fL (9.1-12.4); NEUTROPHILS ABSOLUTE AUTO 15.33 K/mm3 (1.96-9.15); NEUTROPHILS PERCENT AUTO 86 % (41-73); Platelet Count 278 K/mm3 (150-400); RDW Coefficient Variation 15.1 % (11.7-14.2); RDW Standard Deviation 48.5 fL (35.1-46.3); Red Blood Cell Count 3.78 M/mm3 (3.80-5.20); White Blood Cell Count 17.82 K/mm3 (4.00-11.30)
[2020-02-19 05:24] LABS: Anion Gap 4 mmol/L (6-16); Blood Urea Nitrogen 50 mg/dL (8-24); Bun/Creatinine Ratio 58.8 (12.0-20.0); CO2, Blood 30 mmol/L (21-32); Calcium, Blood 8.4 mg/dL (8.5-10.1); Chloride, Blood 107 mmol/L (98-108); Creatinine, Blood 0.85 mg/dL (0.40-1.00); Glomerular Filtration Rate >60 (60-); Glucose, Blood 110 mg/dL (70-99); Potassium, Blood 4.8 mmol/L (3.5-5.5); Sodium, Blood 141 mmol/L (136-145)
--- NOTE | 2020-02-19 06:10 | NUR ---
SHIFT SUMMARY PT ALERT TO SELF; C/O BACK PAIN AND DISCOMFORT; REQUIRES FREQUENT REPOSITIONING AND REASSURANCE; DAY SHIFT RN MEDICATED PT W/ 1X FENTANYL AT SHIFT CHANGE WHICH HELPED PT SIGNIFICANTLY; ATIVAN GIVEN 1X IN NIGHT; PT SEEMED MORE ALERT AND SMILED SEVERAL TIMES; O2 SATS >94 ON AIRVO W/ 60L, 60 FIO2; CLINIMIX INFUSING @ 70; BRUISES ON LOWER EXTREMITIES; ATTENDS IN PLACE; PT NOTED SPITTING OUT SMALL MEDS AND PIECES OF FOOD; MEDS GIVEN IN APPLESAUCE AND PT AT TIMES TRIED TO SPIT OUT MED; PT IMPROVED W/ COACHING; CALL LIGHT IN REACH; BED IN LOWEST POSITION; WILL CONTINUE TO MONITOR CLOSELY UNTIL HAND OFF TO DAY SHIFT RN.
--- NOTE | 2020-02-19 08:34 | NUR ---
AM NOTE ASSUMED CARE OF PT APROX 0700. PT IS STILL ON AIRVO AT 60L AND 60%FIO2. PT'S SATS ARE >90% BUT DROP SLIGHTLY WITH ACTIVITY AND AGITATION/ANXIETY. PROVIDER AT THE BEDSIDE. PT WAS GIVEN BEDBATH AND GOTTEN UP INTO RECLINER CHAIR, CHEST PHYSIOTHERAPY WAS DONE PER PROVIDER'S REQUEST. PT'S OTHER VS STABLE AT THIS TIME. NO SKIN ISSUES NOTED ON ASSESSMENT. CALL LIGHT IN REACH WILL CONTINUE TO MONITOR.
--- NOTE | 2020-02-19 15:00 | NUR ---
Clinical Visit: Contacted by spiritual care. Leatha is concerned about pt's uncontroled symptom of shortness of breath. Pt appears to be in emotional distress, calling out to the hallway. Reviewed with RT, reviewed with nursing. Vikki reports an improvement of symptoms when pt recieved a one time dose of IV fentanyl yesterday. She reports pt is having extreme anxiety in addition to shortness of breath. Call placed to Dr. Stone to review pt's condition and symptoms. She is placing order for additional low dose fentanyl; reviewed pt's options for treatment. Follow up call placed to son, Krystian. He states that pt does appear to be declining in general the last 6 months or so. He confirms dementia diagnosis. Pt is a resident at [facility] and he hasn't been able to see her lately. Reviewed pt's function and prognosis. Reported that more will be known about how she is doing in the next 1-2 days. He agrees that placing her on hospice would be beneficial if she continues to decline clinically. Completed new POLST form and placed in chart for doctor review and signature. No other concerns. Will update son tomorrow. Will suggest comfort measures only if pt is not improving and continues to be very symptomatic.
--- NOTE | 2020-02-19 18:10 | NUR ---
SHIFT SUMMARY... PT HAS BEEN MORE ANXIOUS AND AGITATED THIS SHIFT, PT IS STILL ON THE AIRVO SETTINGS OF 60L AND 60% FIO2. PT'S O2 SATS HAVE BEEN >90%. PT WAS GOTTEN UP TO THE RECLINER CHAIR WITH 2PERSON AND GAIT BELT TRANSFER, PT SPENT APROX 2 HOURS IN RECLINER CHAIR AFTER BREAKFAST AND IS CURRENTLY STILL UP IN THE CHAIR AFTER GETTING UP RIGHT BEFORE DINNER. PT HAS BEEN CALLING OUT "HELP ME HELP ME I CAN'T BREATH." PT'S PAIN MEDICATIONS WERE INCREASED THIS SHIFT, THIS SEEMS TO HELP HER ANXIETY AND AGTIATION. PT'S OTHER VS HAVE BEEN STABLE T/O SHIFT. CALL LIGHT IN REACH WILL CONTINUE TO MONITOR UNTIL REPORT IS GIVEN TO ONCOMING RN.
--- NOTE | 2020-02-19 18:25 | NUR ---
Inital spiritual care note: Mrs. Crowe appears frail and frightend. She reached out to me asking for help, but could not clarify what she wanted. She appears quite confused. She asked to be sat up, and I raised head of bed as far as possible, placing pillows behind her so that she was at 90 degree angle. She still appeard in distress. Asked palliative care RN to review medications. I sat beside pt, providing calm presence and assurance of care/safety. This did not appear to help at all. She was unable to focus during prayer. Diesel Stationary Engineer services will remain available.
--- NOTE | 2020-02-20 06:08 | NUR ---
SHIFT SUMMARY PT ALERT, ORIENTED TO SELF. VSS. SPO2 > 92% ON AIRVO @ 55L. PT CONTINUALLY STATING "HELP ME" OR "I CAN'T BREATHE" THOUGH RESPIRATIONS EVEN & UNLABORED W/ SPO2 > 92%. PT ASSISTED BY TWO PEOPLE FROM CHAIR TO BED AT BEGINNING OF SHIFT W/ PT NOT STRAIGHTENING HER LEGS OUT TO STAND, REQUIRING FULL LIFT BY 2 STAFF MEMBERS FROM CHAIR TO BED. PT GIVEN IV ATIVAN PER EMAR X1 THIS SHIFT W/ NO FURTHER CALLING OUT, PT SLEEPING SOUNDLY, WAKING TO VERBAL STIMULATION AND COOPERATING W/ CARE. WILL CONTINUE TO MONITOR AND PROVIDE CARE UNTIL REPORT OFF TO DAY SHIFT RN.
[2020-02-20 06:27] LABS: BASOPHILS ABSOLUTE AUTO 0.05 K/mm3 (0.00-0.23); BASOPHILS PERCENT AUTO 0 % (0-2); EOSINOPHILS ABSOLUTE AUTO 0.07 K/mm3 (0.00-0.68); EOSINOPHILS PERCENT AUTO 0 % (0-6); Hematocrit 32.6 % (33.0-51.0); Hemoglobin 10.7 g/dL (11.5-16.0); IMMATURE GRAN ABSOLUTE AUTO 0.94 K/mm3 (0.00-0.10); IMMATURE GRAN PERCENT AUTO 4 % (0-1); LYMPHOCYTES ABSOLUTE AUTO 1.89 K/mm3 (0.84-5.20); LYMPHOCYTES PERCENT AUTO 8 % (21-46); MONOCYTES ABSOLUTE AUTO 0.95 K/mm3 (0.16-1.47); MONOCYTES PERCENT AUTO 4 % (4-13); Mean Corpuscular HGB 29.4 pg (26.0-34.0); Mean Corpuscular HGB Conc 32.8 g/dL (31.5-36.5); Mean Corpuscular Volume 90 fL (80-100); Mean Platelet Volume 11.5 fL (9.1-12.4); NEUTROPHILS ABSOLUTE AUTO 18.63 K/mm3 (1.96-9.15); NEUTROPHILS PERCENT AUTO 83 % (41-73); Platelet Count 301 K/mm3 (150-400); RDW Coefficient Variation 15.2 % (11.7-14.2); RDW Standard Deviation 48.9 fL (35.1-46.3); Red Blood Cell Count 3.64 M/mm3 (3.80-5.20); White Blood Cell Count 22.53 K/mm3 (4.00-11.30)
--- NOTE | 2020-02-20 08:00 | NUR ---
AM NOTE... ASSUMED CARE OF PT APROX 0700, PT IS A&Ox2. PT IS STILL ON AIRVO BUT WITH SLIGHTLY IMPROVEMENT OF 55L AND 55-57% FIO2. PT'S WORK OF BREATHING HAS IMPROVED THIS AM AND PT IS CALM AT THIS TIME. PT'S OTHER VS STABLE. PT HAD MINIMAL INTAKE FOR BREAKFAST. L/S DIM T/O SLIGHTLY COARSE IN THE BASES. BT PRESENT AND HYPOACTIVE ABD SOFT AND NONTENDER TO PALP. PT'S MEDICATIONS HAD TO BE CRUSHED AND PUT IN PUDDING FOR PT TO TAKE THEM, OTHERWISE SHE KEPT SPITTING THEM OUT. CALL LIGHT IN REACH WILL CONTINUE TO MONITOR.
--- NOTE | 2020-02-20 18:35 | NUR ---
SHIFT SUMMARY... NO ACUTE NEGATIVE CHANGES NOTED THIS SHIFT. PT'S VS STABLE T/O SHIFT. PT HAS BEEN TITRATED FROM 60L TO 55L AND 55%FIO2. PT HAS BEEN MORE RELAXED THIS SHIFT AND HAS NOT CALLED OUT LIKE SHE DID YESTERDAY. PT REQUESTED TO GET UP INTO THE RECLINER CHAIR W/2 PERSON TRANSFER. PT HAD VERY LITTLE PT INTAKE THIS SHIFT. CALL LIGHT IN REACH WILL CONTINUE TO MONITOR UNTIL REPORT IS GIVEN TO ONCOMING RN.
[2020-02-21 04:45] LABS: Anion Gap 4 mmol/L (6-16); Blood Urea Nitrogen 46 mg/dL (8-24); Bun/Creatinine Ratio 65.7 (12.0-20.0); CO2, Blood 27 mmol/L (21-32); Calcium, Blood 8.1 mg/dL (8.5-10.1); Chloride, Blood 106 mmol/L (98-108); Glomerular Filtration Rate >60 (60-); Glucose, Blood 97 mg/dL (70-99); Sodium, Blood 137 mmol/L (136-145)
--- NOTE | 2020-02-21 06:32 | NUR ---
SHIFT SUMMARY PT A&O TO SELF AND LOCATION, FOLLOWING INSTRUCTIONS. VSS. NO EVENTS OVERNIGHT. MONITOR SHOWS NSR, HR 80's-90's. AIRVO TITRATED FROM 55L, FIO2 53% TO 50L, FIO2 33% THIS SHIFT. PT TOLERATING WELL. PT INCONTINENT, WEARING ATTENDS. Q2H REPOSITIONING @ PRN ARSALAN CARE/ATTENDS CHANGES PROVIDED. CLINIMIX GTT INFUSING PER ORDERS. WILL CONTINUE TO MONITOR AND PROVIDE CARE UNTIL REPORT OFF TO DAY SHIFT RN.
--- NOTE | 2020-02-21 07:21 | NUR ---
ASSUMED CARE: PT RESTING IN BED AT THIS TIME. AIRVO IN PLACE AT 50L WITH 33% FIO2. CLINIMIX GTT RUNNING. DENIES NEEDS OR CONCERNS AT THIS TIME.
--- NOTE | 2020-02-21 11:54 | NUR ---
PT TRANSFERRED VIA RECLINER BY ROLL UP HELPER. NO ACUTE NEEDS OR CONCERNS. REPORT GIVEN TO KRISHAN FULLER
--- NOTE | 2020-02-21 16:17 | NUR ---
SHIFT SUMMARY PCU TRANSFER THIS MORNING. PATIENT DENIES PAIN, NAUSEA, AND SHORTNESS OF BREATH. PATIENT UP 2 MAX STAND PIVOT W/GAIT BELT. PATIENT UP IN RECLINER UNTIL THE AFTERNOON. PATIENT USING AIRVO TO MAINTAIN OXYGEN SATURATION ABOVE 90%. CALL LIGHT IN REACH.
--- NOTE | 2020-02-22 04:59 | NUR ---
CORPORATE QUALITY ENGINEER SUMMARY Patient very restful overnight. Tolerated lipids and Clinimix without issues. ROE powerglide working appropriately with excellent blood return noted. No complications with Airvo overnight. Patient tolerating titrate down without difficulty. Currently running at 25 L/min and 40% 02. No indications or complaints of discomfort. Pleasantly confused, but very cooperative.
--- NOTE | 2020-02-22 15:01 | NUR ---
[facility]. FAMILY CAME TO VISIT WITH PATIENT. TAKEN OF ANTHONY. NOTIFIED NORI OF THE CHANGE, IN TO VIST WITH FAMILY AND PATIENT.
--- NOTE | 2020-02-22 16:16 | NUR ---
PATIENT SLEEPING. NO ACUTE ISSUES NOTED. NO SOB NOTED. APPEARS COMFORTABLE.
--- NOTE | 2020-02-22 17:16 | NUR ---
Spiritual care note: Mrs. Stark was awake, smiles easily, but was confused. Her son was at bedside and appears withdrawn emotionally. When I asked him how he was doing, he shrugged and said, "This was always coming." He did not engage with me. Knelt beside Mrs. Stark and offered prayer/touch. She appears comfortable and well cared for. She did not really engage either. I will remain available.
--- NOTE | 2020-02-22 17:22 | NUR ---
INCONTINENT, ATTENDS CHANGED. RESTING IN BED, APPEARS COMFORTABLE.
--- NOTE | 2020-02-22 19:10 | NUR ---
ASSUMED CARE RECEIVED REPORT FROM DAY SHIFT RN. ASSUMED CARE OF PT. PT COMFORTABLE, NO S/S ACUTE DISTRESS NOTED. DENIES PAIN OR DISCOMFORT AT THIS TIME. CALL LIGHT, POSSESSIONS IN REACH, BED IN LOWEST POSITION WITH ALARM ON. WILL CONTINUE TO MONITOR.
--- NOTE | 2020-02-22 21:08 | NUR ---
1919 COMFORT CARE ASSESSMENT PT IN POSITION OF COMFORT AT THIS TIME, NO S/S ACUTE DISTRESS NOTED. RESPIRATIONS EVEN AND UNLABORED. O2 NC REMAINS IN PLACE AT THIS TIME. CALL LIGHT AND POSSESSIONS IN REACH, BED IN LOWEST POSITION WITH BED ALARM ACTIVATED. WILL CONTINUE TO MONITOR.
--- NOTE | 2020-02-22 21:10 | NUR ---
2109 COMFORT CARE ASSESSMENT PT WATCHING TELEVISION AT THIS TIME, DENIES PAIN, DISCOMFORT OR SOB. RESPIRATIONS EVEN AND UNLABORED. O2 NC REMAINS IN PLACE. LABORER SHAFT SINKING ENTERING ROOM TO REPOSITION PT. CALL LIGHT, POSSESSIONS IN REACH, BED IN LOWEST POSITION WITH BED ALARM ACTIVATED. WILL CONTINUE TO MONITOR.
--- NOTE | 2020-02-22 21:19 | NUR ---
1976 COMFORT CARE ASSESSMENT PT RESTING COMFORTABLY AT THIS TIME, NO S/S DISTRESS NOTED. DENIES PAIN OR DISCOMFORT. CALL LIGHT, POSSESSIONS IN REACH. WILL CONTINUE TO MONITOR.
--- NOTE | 2020-02-22 23:19 | NUR ---
8999 COMFORT CARE ASSESSMENT PT ASLEEP AT THIS TIME, NO S/S DISTRESS NOTED. CALL LIGHT, POSSESSIONS IN REACH, BED IN LOWEST POSITION. WILL CONTINUE TO MONITOR.
--- NOTE | 2020-02-23 01:23 | NUR ---
0123 COMFORT CARE ASSESSMENT PT SITTING UP WATCHING TV. ATTENDS CHANGE AND ARSALAN-CARE PERFORMED, PT TOLERATED WELL. DENIES PAIN OR DISCOMFORT. CALL LIGHT, POSSESSIONS IN REACH, BED IN LOWEST POSITION WITH BED ALARM ACTIVATED. WILL CONTINUE TO MONITOR.
--- NOTE | 2020-02-23 01:56 | NUR ---
UPDATE SENIOR FINANCIAL ANALYST REPORTED TO THIS RN THAT PT HAD REMOVED WHITE MESH COVERING FOR IV SITE, AND WAS PICKING AT AN OLD [place] DRSG. PT VISIBLY ANXIOUS. RE-DIRECTED PT APPROPRIATE, MEDICATED PER EMAR. CALL LIGHT, POSSESSIONS IN REACH, BED IN LOWEST POSITION WITH ALARM ON. WILL CONTINUE TO MONITOR.
--- NOTE | 2020-02-23 02:56 | NUR ---
0256 COMFORT CARE ASSESSMENT PT ASLEEP AT THIS TIME. CALL LIGHT, POSSESSIONS IN REACH, BED IN LOWEST POSITION WITH BED ALARM ACTIVATED. WILL CONTINUE TO MONITOR.
--- NOTE | 2020-02-23 04:14 | NUR ---
SHIFT SUMMARY PT ASLEEP, NO FURTHER S/S ANXIET/AGITATION NOTED, AT EASE. PT COMFORT WAS MONITORED AND ASSESSED EVERY 2 HOURS WITH NEEDS MET. DENIES NEEDS AT THIS TIME. NO OTHER ACUTE EVENTS NOTED T/O SHIFT. CALL LIGHT, POSSESSIONS IN REACH, BED IN LOWEST POSITION WITH ALARM ON. WILL CONTINUE TO MONITOR UNTIL DAY RN ASSUMES CARE.
--- NOTE | 2020-02-23 06:09 | NUR ---
PT REMAINS ASLEEP AT THIS TIME. NO S/S ACUTE DISTRESS NOTED. CALL LIGHT, POSSESSIONS IN REACH, BED IN LOWEST POSITION WITH ALARM ON. WILL CONTINUE TO MONITOR.
--- NOTE | 2020-02-23 06:10 | NUR ---
PT AWAKE, TELEGRAPH EQUIPMENT MAINTAINER IN ROOM CARING FOR PT. PT COMFORTABLE, DENIES PAIN OR DISCOMFORT. CALL LIGHT IN REACH, BED IN LOWEST POSITION WITH BED ALARM ON. WILL CONTINUE TO MONITOR.
--- NOTE | 2020-02-23 12:23 | NUR ---
COMFORT CARE VISIT: Case conferenced with pt's RN re: current status and s/s. Pt asleep in her reclined chair. No nonverbal indicators of pain, dyspnea or anxiety noted. Pt appears peaceful and comfortable in her sleep. No family in room currently but they came in yesterday afternoon/charles. Today is the pt's birthday. Discussed d/c planning with CM. Pt resides at /[facility]. She appears stable for transfer back to with Hospice care to follow. CM to contact .
[2020-02-23] MEDS ORDERED: Transderm-Scop1 EACH TD (13:30)
[2020-02-23] MEDS ORDERED: PROM25S PR (13:31)
--- NOTE | 2020-02-23 14:41 | NUR ---
REPORT GIVEN REPORT GIVEN TO SHERYL HELTON. NO FURTHER QUESTIONS REQUIRED AT THIS TIME.
--- NOTE | 2020-02-23 15:45 | NUR ---
PT DISCHARGED. PT DISCHARGED AND TRANSPORTED TO [facility]. REPORT CALLED TO [facility] NURSE PREVIOUSLY. PT FAMILY NOTIFIED OF DC BY CARE MANAGMENT. PG REMOVED & INTACT.
--- NOTE | 2020-02-23 16:06 | NUR ---
FENTAYNL SCRIPT NEEDED FENTAYNL SCRIPT NEEDED FOR [facility] PER NURSE JENNIFER. DR. SEGURA NOTIFIED THAT HARD SCRIPT IS NEEDED. STATED HE WILL WIRTE SCRIPT FOR THIS RN TO FAX TO [facility].
--- NOTE | 2020-02-23 17:00 | NUR ---
Spiritual care note: Mrs. Stark was awake and pleasant. I wished her a happy birthday and provided prayer. She seemed pleased. She denied pain/fear/concern. She is being discharged this afternoon.
== END 2020-02-23 15:30 | DRG 871 ==
LOC: ER 19:01 → ERHOLD 23:54 → PCU 23:54 → MEDS 02-21 10:51
PROVIDERS: Emergency Medicine; Hospitalist; Internal Medicine; ADMIT Internal Medicine
DX: A41.9 Sepsis, unspecified organism (principal); J69.0 Pneumonitis due to inhalation of food and vomit; J96.01 Acute respiratory failure with hypoxia; N17.0 Acute kidney failure with tubular necrosis; E87.0 Hyperosmolality and hypernatremia; I13.0 Hypertensive heart and chronic kidney disease with heart failure and stage 1 through stage 4 chronic kidney disease, or unspecified chronic kidney disease; I50.32 Chronic diastolic (congestive) heart failure; N39.0 Urinary tract infection, site not specified; N18.3 Chronic kidney disease, stage 3 (moderate); E86.0 Dehydration; F03.90 Unspecified dementia, unspecified severity, without behavioral disturbance, psychotic disturbance, mood disturbance, and anxiety; F32.9 Major depressive disorder, single episode, unspecified; K21.9 Gastro-esophageal reflux disease without esophagitis; R13.10 Dysphagia, unspecified; Z66 Do not resuscitate; Z03.818 Encounter for observation for suspected exposure to other biological agents ruled out; Z99.81 Dependence on supplemental oxygen; Z51.5 Encounter for palliative care; Z88.0 Allergy status to penicillin; Z87.891 Personal history of nicotine dependence; J43.9 Emphysema, unspecified; R65.20 Severe sepsis without septic shock
CPT/HCPCS: 36415; 36600; 71045; 71250; 80048; 80053; 81001; 82803; 82947; 83605; 83735; 83880; 84100; 84145; 85025; 85027; 87040; 87086; 92526; 92610; 93005; 93010; 94640; 94762; 96365-59; 96367; 99285-25; A9270; A9270-GY; C1751; J0696; J1650; J1956; J2060; J2920; J2930; J3010; J3411; J7050; J7070; P9612; U0002

== ENCOUNTER → 2020-02-12 | Outpatient (CLI) | payer MEDICARE, OTHER ==
[2020-02-12 11:50] LABS: Hemoglobin 11.8 g/dL (11.5-16.0); Mean Corpuscular HGB 29.5 pg (26.0-34.0); Mean Corpuscular HGB Conc 30.3 g/dL (31.5-36.5); Mean Corpuscular Volume 98 fL (80-100); Mean Platelet Volume 12.4 fL (9.1-12.4); NRBC ABSOLUTE 0.03 K/mm3 (0.00-0.02); NRBC Auto 0.2 /100 WBC (0.0-0.2); Platelet Count 258 K/mm3 (150-400); RDW Coefficient Variation 15.4 % (11.7-14.2); RDW Standard Deviation 55.2 fL (35.1-46.3); White Blood Cell Count 18.84 K/mm3 (4.00-11.30)
[2020-02-12 12:01] LABS: Albumin, Blood 1.9 g/dL (3.4-5.0); Albumin/Globulin Ratio 0.5 (0.8-1.8); Bilirubin, Total 0.3 mg/dL (0.1-1.0); Bun/Creatinine Ratio 41.4 (12.0-20.0); Creatinine, Blood 1.11 mg/dL (0.40-1.00); Globulin, Blood 3.9 g/dL (2.2-4.0); Potassium, Blood 3.8 mmol/L (3.5-5.5); Total Protein, Blood 5.8 g/dL (6.4-8.2)
[2020-02-12 12:31] LABS: BASOPHILS PERCENT MAN 0 % (0-2); EOSINOPHILS PERCENT MAN 0 % (0-6); LYMPHOCYTES ABSOLUTE MAN 1.31 K/mm3 (0.84-5.20); LYMPHOCYTES PERCENT MAN 7 % (21-46); MONOCYTES ABSOLUTE MAN 0.75 K/mm3 (0.16-1.47); MONOCYTES PERCENT MAN 4 % (4-13); NEUTROPHILS ABSOLUTE MAN 16.76 K/mm3 (1.96-9.15); SEG NEUTROPHILS PERCENT MAN 89 % (41-73); TOTAL CELLS COUNTED 100
== END | disposition home or self-care (01) ==
LOC: EDSTATUS 11:08 → LAB RH 11:38
PROVIDERS: Family Medicine
DX: R74.0 Nonspecific elevation of levels of transaminase and lactic acid dehydrogenase [LDH] (principal); R79.89 Other specified abnormal findings of blood chemistry; R68.89 Other general symptoms and signs
CPT/HCPCS: 80053; 83605; 83615; 83880; 85025

== ENCOUNTER → 2021-04-17 | Outpatient (CLI) | payer MEDICARE, OTHER ==
[~2021-04-17] MED LIST changes: +ACET325 PO; +ALBU90OI INH; +ASPIR 8181 MG PO; +Artificial Tea1 EACH BOTHEYES; +BISA10S PR; +BISA5EC PO; +Ceftriaxone1 G2 IV; +DONEPEZIL HCL10 MG PO; +FLUT1DIS8 INH; +Fleet Enema132 ML PR; +GAVILAX17 GM PO; +GUAI600T33 PO; +MAGNESIUM CITR100 MG; +MILK OF MA400 MG/5 M PO; +PROM25S PR; +THERA1 EACH PO; +Transderm-Scop1 EACH TD; +Vitamin D2000 UNIT PO; +[UNRECOGNIZED DRUG - OTHER] IV
[2021-04-17 13:46] LABS: Hematocrit 39.8 % (33.0-51.0); Hemoglobin 12.3 g/dL (11.5-16.0); Mean Corpuscular HGB 28.9 pg (26.0-34.0); Mean Corpuscular HGB Conc 30.9 g/dL (31.5-36.5); Mean Corpuscular Volume 94 fL (80-100); Mean Platelet Volume 12.1 fL (9.1-12.4); Platelet Count 249 K/mm3 (150-400); RDW Coefficient Variation 14.3 % (11.7-14.2); RDW Standard Deviation 49.3 fL (35.1-46.3); Red Blood Cell Count 4.25 M/mm3 (3.80-5.20); White Blood Cell Count 7.13 K/mm3 (4.00-11.30)
[2021-04-17 14:41] LABS: Anion Gap 5 mmol/L (6-16); Blood Urea Nitrogen 28 mg/dL (8-24); Bun/Creatinine Ratio 36.8 (12.0-20.0); CO2, Blood 30 mmol/L (21-32); Chloride, Blood 110 mmol/L (98-108); Creatinine, Blood 0.76 mg/dL (0.40-1.00); Glomerular Filtration Rate >60 (60-); Glucose, Blood 122 mg/dL (70-99); Potassium, Blood 4.1 mmol/L (3.5-5.5); Sodium, Blood 145 mmol/L (136-145)
== END ==
LOC: LAB RH 08:45 → EDSTATUS 09:59
PROVIDERS: Internal Medicine
DX: I10 Essential (primary) hypertension (principal); M62.81 Muscle weakness (generalized)
CPT/HCPCS: 80048; 85027

== ENCOUNTER 2021-06-25 09:08 | Inpatient (IN) | payer MEDICARE, OTHER ==
[~2021-06-25] VITALS: Ht 165.1 cm; Wt 51.8 kg
[2021-06-25] MEDS ORDERED: FENTANYL1 EAC3 TOP (09:35)
[2021-06-25 10:10] LABS: PCO2 Arterial 40.9 mmHg (35-45); PO2 Arterial 73.2 mmHg (80-100)
[2021-06-25 10:21] LABS: Magnesium, Blood 2.4 mg/dL (1.6-2.4); Troponin I 0.04 ng/mL (0.000-0.040)
[2021-06-25 10:22] LABS: Albumin, Blood 2.9 g/dL (3.4-5.0); Albumin/Globulin Ratio 0.8 (0.8-1.8); Bilirubin, Total 0.4 mg/dL (0.1-1.0); Bun/Creatinine Ratio 38.7 (12.0-20.0); Calcium, Blood 8.5 mg/dL (8.5-10.1); Creatinine, Blood 0.96 mg/dL (0.40-1.00); Globulin, Blood 3.6 g/dL (2.2-4.0); Potassium, Blood 4.4 mmol/L (3.5-5.5); Total Protein, Blood 6.5 g/dL (6.4-8.2)
[2021-06-25 11:06] LABS: BASOPHILS ABSOLUTE AUTO 0.01 K/mm3 (0.00-0.23); BASOPHILS PERCENT AUTO 0 % (0-2); EOSINOPHILS PERCENT AUTO 0 % (0-6); IMMATURE GRAN ABSOLUTE AUTO 0.09 K/mm3 (0.00-0.10); IMMATURE GRAN PERCENT AUTO 2 % (0-1); LYMPHOCYTES ABSOLUTE AUTO 0.67 K/mm3 (0.84-5.20); LYMPHOCYTES PERCENT AUTO 11 % (21-46); MONOCYTES ABSOLUTE AUTO 0.44 K/mm3 (0.16-1.47); MONOCYTES PERCENT AUTO 7 % (4-13); Mean Corpuscular HGB 28.7 pg (26.0-34.0); Mean Corpuscular Volume 93 fL (80-100); Mean Platelet Volume 10.7 fL (9.1-12.4); NEUTROPHILS ABSOLUTE AUTO 4.97 K/mm3 (1.96-9.15); NEUTROPHILS PERCENT AUTO 80 % (41-73); Platelet Count 190 K/mm3 (150-400); RDW Coefficient Variation 14.5 % (11.7-14.2); RDW Standard Deviation 49.5 fL (35.1-46.3); Red Blood Cell Count 4.53 M/mm3 (3.80-5.20); White Blood Cell Count 6.18 K/mm3 (4.00-11.30)
[2021-06-25] MEDS ORDERED: ALBU90OI INH (16:01)
[2021-06-25] MEDS ORDERED: BISA10S PR (16:03)
[2021-06-25] MEDS ORDERED: DULCOLAX400 MG/5 M PO (16:05)
[2021-06-25] MEDS ORDERED: DOCUZEN 8.6-501 EACH PO (16:07)
--- NOTE | 2021-06-25 17:51 | NUR ---
SHIFT SUMMARY PT ADMITTED AT APPROXIMATELY 1455. PT IS AO TO SELF WITH LIMITED VERBAL RESPONSES. PT IS ON BEDREST WITH BRP, 1 ASSIST. PT APPETITE IS POOR. ENHANCED ISOLATION PRECAUTIONS MAINTAINED T/O SHIFT. PT DID NOT HAVE VISITORS PER COVID PROTOCOL. PLAN IS TO MONITOR STATUS. PT IS IN BED, CALL LIGHT IN REACH, LOW POSITION.
--- NOTE | 2021-06-26 05:37 | NUR ---
SHIFT SUMMARY- PT. ALERT TO SELF, CONFUSED WITH MINIMAL RESPONSES, HX OF DEMENTIA. ON 55L AIRVO SATS 92-94%. PT. ON BEDREST DURING THE NIGHT, INCONT, ATTENDS IN PLACE. DENIED COMPLAINTS OF PAIN OR DISCOMFORT. RESTED QUIETLY T/O THE NIGHT, NO APPARENT DISTRESS NOTED. CALL LIGHT WITHIN REACH, SIDE RAILS UPX2, AND BED ALARM ON FOR SAFETY. WILL CONT TO MONITOR.
--- NOTE | 2021-06-26 14:34 | NUR ---
CONTINUES WITH AERVO AT 55L. DESATS EASILY. MEALS TODAY 50% BREAKFAST AND LUNCH WITH ASSISTANCE. REMDESIVIR GIVEN. DRY COUGH. PLEASANT/COOP/BARROW.
--- NOTE | 2021-06-26 18:24 | NUR ---
MAINTAINS SATURATIONS WHEN O2 IS IN PLACE. NO ACUTE CHANGES. CONTINUES ON AERVO AT 70% AND 55L. DESATS WHEN O2 ISN'T IN PLACE.
[2021-06-27 06:29] LABS: Anion Gap 4 mmol/L (6-16); Blood Urea Nitrogen 48 mg/dL (8-24); Bun/Creatinine Ratio 59.9 (12.0-20.0); CO2, Blood 26 mmol/L (21-32); Calcium, Blood 8.3 mg/dL (8.5-10.1); Chloride, Blood 116 mmol/L (98-108); Glomerular Filtration Rate >60 (60-); Glucose, Blood 132 mg/dL (70-99); Potassium, Blood 4.6 mmol/L (3.5-5.5); Sodium, Blood 146 mmol/L (136-145)
--- NOTE | 2021-06-27 06:49 | NUR ---
SHIFT SUMMARY AOX1-SELF/FOLLOWING SIMPLE DIRECTIONS. FORGETFUL & CONFUSED @TIMES. VSS. COVID +. LUNGS DIM c FINE CRACKLES. ON AIRVO 45L @60%, PT DESATS TO LOW 80% WHEN SHE REMOVES AIRVO CANNULA. DENIES SOB, PAIN OR NAUSEA. CALL LIGHT & BED ALARM IN PLACE.
--- NOTE | 2021-06-27 18:14 | NUR ---
DESATS RAPIDLY WHEN SHE TAKES O2 OFF. NRB PLUS AERVO IN PLACE. MUST BE MONITORED CLOSELY
[2021-06-28 04:30] LABS: BASOPHILS ABSOLUTE AUTO 0.05 K/mm3 (0.00-0.23); BASOPHILS PERCENT AUTO 0 % (0-2); EOSINOPHILS ABSOLUTE AUTO 0.16 K/mm3 (0.00-0.68); EOSINOPHILS PERCENT AUTO 1 % (0-6); Hematocrit 42.7 % (33.0-51.0); Hemoglobin 13.9 g/dL (11.5-16.0); IMMATURE GRAN ABSOLUTE AUTO 0.53 K/mm3 (0.00-0.10); IMMATURE GRAN PERCENT AUTO 3 % (0-1); LYMPHOCYTES ABSOLUTE AUTO 1.02 K/mm3 (0.84-5.20); LYMPHOCYTES PERCENT AUTO 6 % (21-46); MONOCYTES ABSOLUTE AUTO 0.75 K/mm3 (0.16-1.47); MONOCYTES PERCENT AUTO 4 % (4-13); Mean Corpuscular HGB 29.1 pg (26.0-34.0); Mean Corpuscular HGB Conc 32.6 g/dL (31.5-36.5); Mean Corpuscular Volume 89 fL (80-100); NEUTROPHILS ABSOLUTE AUTO 14.95 K/mm3 (1.96-9.15); NEUTROPHILS PERCENT AUTO 86 % (41-73); Platelet Count 381 K/mm3 (150-400); RDW Coefficient Variation 14.6 % (11.7-14.2); RDW Standard Deviation 48.1 fL (35.1-46.3); Red Blood Cell Count 4.78 M/mm3 (3.80-5.20); White Blood Cell Count 17.46 K/mm3 (4.00-11.30)
[2021-06-28 04:50] LABS: Anion Gap 8 mmol/L (6-16); Blood Urea Nitrogen 57 mg/dL (8-24); Bun/Creatinine Ratio 78.1 (12.0-20.0); CO2, Blood 23 mmol/L (21-32); Calcium, Blood 8.1 mg/dL (8.5-10.1); Chloride, Blood 112 mmol/L (98-108); Creatinine, Blood 0.73 mg/dL (0.40-1.00); Glomerular Filtration Rate >60 (60-); Glucose, Blood 266 mg/dL (70-99); Magnesium, Blood 2.8 mg/dL (1.6-2.4); Phosphorus, Blood 4.2 mg/dL (2.5-4.9); Potassium, Blood 5.3 mmol/L (3.5-5.5); Sodium, Blood 143 mmol/L (136-145); Triglycerides 383 mg/dL (30-160)
--- NOTE | 2021-06-28 06:31 | NUR ---
SUMMARY PT CONTINUED TO REMOVE OXYGEN FROM HER FACE. PROVIDER CALLED AND ORDERED BILAT WRIST RESTRAINT. PT LATER NOTED TO HAVE RAPID HEART RATE. PROVIDER CALLED AND ORDERED LOPRESSOR IV, TROPOIN AND EKG. PT HAD NOTED EKG CHANGES AND ELEVATED TROPIN. PROVIDER CALLED AND ORDERED HEPRIN DRIP AND PO ASA. PT C/O OF SOME ABD PAIN. PROVIDER ORDERED PRN MORPHINE. PT DENIED CX PAIN OR INCREASE IN SOB. DR ADAN STATED HE ATTEMPTED TO CALL PT'S SON TO DISCUSS PT CURRENT CODE STATUS. WCTM. PT CURRENTLY ON TELE. PROVIDER ORDERED LOPRESSOR PRN FOR ELEVATED HEART RATE Q 4 HOURS. PT CURRENTLY AWAKE AND AGITATED. CALL LIGHT IN REACH AND BED ALARM ON.
--- NOTE | 2021-06-28 08:59 | NUR ---
PT WITH DEACREASED SATS THIS MORNING DROPPING TO 84% ON AIRVO. DR DUDLEY IN THE ROOM. RT TO ROOM PLACED PT ON BIPAP. SATS NOW 92% WITH BIPAP IN PLACE. DR GARCIA INTO SEE PT- NEW ORDERS RECIEVED.
[2021-06-28 09:20] LABS: PCO2 Arterial 33.1 mmHg (35-45); PO2 Arterial 51.2 mmHg (80-100); pH Blood Arterial 7.42 (7.35-7.45)
--- NOTE | 2021-06-28 11:24 | NUR ---
DR DUDLEY SPOKE WITH SON AND AGREED BEST FOR PT TO BE COMFORT CARE. NEW ORDERS REICIVED.
--- NOTE | 2021-06-28 12:12 | NUR ---
STARTED PT ON COMFORT CARE. IS ON BIPAP CURRENTLY. MEDICATED WITH ROXONOL AND ATIVEN FOR SS OF AIR HUNGER AND ANXIETY. SON AT BEDSIDE AND DIDN'T WANT TO STAY AND SEE MOM IN CURRENT CONDITION. AFTER MEDS PT CALMED AND IS RESTING WITH RESP EVEN AND UNLABORED, NOW RESTING COMFORTABLE WITH EYES CLOSED. WILL FELIX
--- NOTE | 2021-06-28 18:04 | NUR ---
PT SWITCHED FROM BIPAP TO NRM-15L FLOW. RR 40, SUCTIONED MOUTH, MIN SECERTIONS, ORAL CARE, PT CLEANSED AND LINEN CHANGE COOL WASH CLOTH. ATIVAN FOR RELIEF OF ANXIETY AND ROXONOL FOR AIR HUGER. PT APPEARS COMFORTBALE AFTER MEDS AND RESPCITION, ALSO ATTENDA CHANGE AND ARSALAN CARE.
--- NOTE | 2021-06-28 18:07 | NUR ---
SUMM- PT BECAME COMFORT CARE TODAY.. SON IN TO SEE PT JUST BEFORE NOON AND LEFT SOON AFTER STATING HE DIDN'T WANT TO SEE HIS MOM THIS WAY. MEDICATED PT WITH ROXONOL AND ATIVAN Q1-2 HOURS. PT'S AIR HUNGER S/S DECREASED WITH FIRST DOSE OF RAYSA AND CONT TO BECOME MORE COMFORTABLE. NOW SEMICOMATOSE, NO EYE OPENING, DEPENDANT IN CARE . INCONT ATTENDS. WILL KEEP COMFORTABLE. ORAL CARE. TURNS Q2 TOLERATES.
--- NOTE | 2021-06-28 18:11 | NUR ---
PT APPEARS TO BE ACTIVELY DYING; SHE HAS BEEN KEPT COMFORTABLE TODAY. HER RESPIRATIONS ARE UNEVEN, AND HER EYES ARE FIXED. HER BROW IS NOT FURROWED. SHE APPEARS LIKELY TO PASS THIS EVENING OR NIGHT.
--- NOTE | 2021-06-28 18:48 | NUR ---
Called this morning as pt worsening. Pt minamilly responsive pulling at bipap. Labored repirations barely able to ventilate. Lab in to draw blood unable to get sample. Called son with updates and reassessment. Review of decline and comfort care. Son agreed it is time. pt placed on comfort son in to say his goodbyes and orders placed will eave bipap on until symptoms better manged. pt has [facility] as the funneral home.
--- NOTE | 2021-06-28 23:19 | NUR ---
PT resting comfortably with nonrebreather in place. Nonresponsive to voice or touch,. Covid 19 PT continues on comfort care.
--- NOTE | 2021-06-28 23:20 | NUR ---
PT pale cool mottling to hands & feet. Wearing nonrebreather. Son reportedly visited on day shift aware of comfort care for covid 19 & other comorbiditys
--- NOTE | 2021-06-29 05:48 | NUR ---
86 year old Female with covid 19 ot 0530 pronounced at 0530 with second RN Joshua no resp no pulse. had upper denture in room will send to mortuary.
--- NOTE | 2021-06-29 06:16 | NUR ---
SON INGRID NOTIFIED OF PT PASSING. SON STATED THAT HE WAS IN YESTERDAY AND DID NOT PLAN ON COMING IN AGAIN. [employer]OR [employer] NOTIFIED AND RELEASED PT. DR. VASQUEZ AND [employer] NOTIFIED. [place] OF THE [facility] NOTIFIED. AWAITING CALL BACK FOR ETA FOR PICKUP.
== END 2021-06-29 05:30 | DRG 177 ==
LOC: ER 09:08 → ERHOLD 09:09 → MEDS 14:53
PROVIDERS: Family Medicine; Internal Medicine; Student in an Organized Health Care Education/Training Program; ADMIT Internal Medicine
PROC: 5A09357 Assistance with Respiratory Ventilation, Less than 24 Consecutive Hours, Continuous Positive Airway Pressure (ICD-10-PCS; principal; 2021-06-27)
PROC: 8E0ZXY6 Isolation (ICD-10-PCS; 2021-06-27)
PROC: XW033E5 Introduction of Remdesivir Anti-infective into Peripheral Vein, Percutaneous Approach, New Technology Group 5 (ICD-10-PCS; 2021-06-27)
PROC: 3E0333Z Introduction of Anti-inflammatory into Peripheral Vein, Percutaneous Approach (ICD-10-PCS; 2021-06-27)
DX: U07.1 COVID-19 (principal); J96.21 Acute and chronic respiratory failure with hypoxia; J12.82 Pneumonia due to coronavirus disease 2019; I21.09 ST elevation (STEMI) myocardial infarction involving other coronary artery of anterior wall; J69.0 Pneumonitis due to inhalation of food and vomit; I50.32 Chronic diastolic (congestive) heart failure; E87.2 Acidosis; Z66 Do not resuscitate; Z51.5 Encounter for palliative care; F03.90 Unspecified dementia, unspecified severity, without behavioral disturbance, psychotic disturbance, mood disturbance, and anxiety; I48.0 Paroxysmal atrial fibrillation; R13.10 Dysphagia, unspecified; Z88.0 Allergy status to penicillin; Z88.5 Allergy status to narcotic agent; K21.9 Gastro-esophageal reflux disease without esophagitis; Z91.018 Allergy to other foods; J43.9 Emphysema, unspecified; F32.9 Major depressive disorder, single episode, unspecified; Z98.890 Other specified postprocedural states; Z78.1 Physical restraint status
CPT/HCPCS: 36415; 36600; 71045; 80048; 80053; 82803; 83605; 83735; 83880; 84100; 84478; 84484; 85025; 85730; 92610; 93005; 93010; 94660; 94762; 96372; 96374; 96375; 96376; 99285-25; A9270; G0378; J1100; J1644; J1650; J2060; J2270; J7030